=== PATIENT | female | born 1980 ===

== ENCOUNTER → 2017-04-20 | Day surgery (SDC) | payer OTHER ==
--- NOTE | 2017-04-20 12:30 | PCM.SURG1 ---
Surgeon's Initial Post Op Note - Surgeon's Notes Surgeon: Robin Drummond MD [employer] Associate: NONE Pre-Operative Diagnosis: Left thyroid nodule Operative Findings: US showed solid 2 cm left lower pole thyroid nodule Post-Operative Diagnosis: Left thyroid nodule Operation Performed: US guided FNA Specimen/Specimens Removed: 25 g FNA x 5 passes Estimated Blood Loss: EBL {In ML}: 0 Blood Products Given: N/A Drains Used: No Drains Post-Op Condition: Good Date of Surgery/Procedure: 04/20/17 Time of Surgery/Procedure: 12:15
--- NOTE | 2017-04-20 12:33 | CP.SDSHP ---
Same Day Surgery H & P - History Proposed Procedure: US guided FNA of left thyroid nodule Pre-Op Diagnosis: left thyroid nodule - Physical Exam Mental Status: Alert & Oriented x3 - Impression Impression: PT w left thyroid nodule referred for FNA. Plan US guided FNA. Pt. Evaluated Today:Candidate for Anesthesia & Procedure: No - Date & Time Date: 04/20/17 Time: 12:20 Short Stay Discharge - Short Stay Discharge Admitting Diagnosis/Reason for Visit: E04.1 -THYROID NODULE Disposition: HOME/ ROUTINE
--- NOTE | 2017-04-20 12:51 | US ---
Date of Procedure: 04/16/2017 PROCEDURE: 1. Ultrasound guided FNA of left thyroid nodule, CPT 55661 2. Ultrasound guidance for FNA, 42653 Medications: 3cc 1% Lidocaine HISTORY: Enlarged left thyroid mass. TECHNIQUE: Following informed consent and procedure time-out, a limited ultrasound patient's neck confirmed the presence of a large complex left thyroid nodule measuring 1.6 centimeters. The left thyroid nodule which is predominantly solid. After the patient's neck was prepped and draped in the usual sterile fashion, the skin was anesthetized with 1% lidocaine. Ultrasound-guided fine needle aspiration was then performed of the dominant left thyroid nodule. A total of 5 passes were made into the nodule with 25 gauge needle under ultrasound guidance. The FNA specimen was sent for routine pathology. Post biopsy ultrasound showed no hematoma. IMPRESSION: Ultrasound-guided FNA of the dominant left thyroid nodule.
== END | disposition home or self-care (01) ==
LOC: C.SPRAD 10:16
PROVIDERS: ATTEND Radiology Vascular & Interventional Radiology
DX: E04.1 Nontoxic single thyroid nodule (principal)